=== PATIENT | male | born 1975 | race Caucasian/White ===

== ENCOUNTER 2019-04-21 14:03 | Inpatient (IN) | payer OTHER ==
[~2019-04-21] VITALS: Ht 165.1 cm; Wt 75.3 kg
[2019-04-21 14:09] VITALS: BP 136/91
[2019-04-21 17:27] VITALS: BP 136/90
[2019-04-21 18:01] VITALS: BP 150/94
[2019-04-21 18:44] VITALS: BP 141/99
[2019-04-21 21:03] VITALS: BP 128/94
--- NOTE | 2019-04-21 21:48 | NUR ---
PT CAME TO UNIT @ 1835. ADMISSION CHECKLIST COMPLETED. PT DENIES PAIN. L ANKLE ELEVATED WITH ICE PACKS. FRIENDS AT BEDSIDE, TRANSLATED DURING ADMISSION. PT AWARE OF NPO STATUS @ MIDNIGHT. READY FOR SURGERY.
[2019-04-21 22:52] LABS: ABSOLUTE NEUTROPHILS 5.4 thou/uL (1.4-8.2); BASOPHILS 0.7 % (0.0-2.0); EOSINOPHILS 0.7 % (0.0-3.0); HEMATOCRIT 47.3 % (42.0-52.0); HEMOGLOBIN 15.8 gm/dL (14.0-18.0); MCH 31.1 pg (26.0-34.0); MCHC 33.5 g/dL (28.0-37.0); MCV 92.9 fL (80.0-100.0); MONOCYTES 11.1 % (1.0-8.0); PLATELET COUNT 329 thou/uL (150-400); POLYS 57.5 % (36.0-66.0); RBC 5.09 mil/uL (4.50-6.00); RDW 12.8 % (10.5-14.5); WBC 9.4 thou/uL (4.0-11.0)
[2019-04-21 22:56] LABS: CALCIUM 8.8 mg/dL (8.5-10.1); POTASSIUM 3.7 mmol/L (3.5-5.1)
[2019-04-22 07:50] VITALS: BP 126/85
[2019-04-22 11:19] VITALS: BP 139/89
--- NOTE | 2019-04-22 11:23 | NUR ---
IN preop Dr. Ricardo carranza the phone director of product development service to interview the silvia regarding his health history and to explain the surgery to him.Silvia asked questions gave permission for the surgery and for anesthesia. His friend ABRAHAM was in the room during the above conversation.
--- NOTE | 2019-04-22 15:25 | NUR ---
Case opened to follow for dc planning. Pt is s/p orif lt ankle today. [employer] Offbearer visited with his and a friend at bedside. Compound Coating [employer] Offbearer spoke with them in Belgian. The pt is from [place] and was here in town for work. He works in construction. He broke his ankle playing a soccer game. He is aware that he will be NWB for 6 weeks. He will need to come back and see ortho in 2weeks. They are planning on driving back home tomorrow (4hours) and have been encouraged to stop every hour and walk. The pt used both a rwalker and crutches with therapy today. Info provided to the pt's friend to go to a second hand store and look for a used rwalker/crutches as the pt is self pay with no insurance coverage. His friend will look this evening to see what he can find. The pt lives in an apt with 8 steps, but is planning on staying with his brother and sister in law for a while as they do not have any steps. Pt is aware that he will likely be dc'd tomorrow. Will ask [employer] to see the pt for a alejandrina application. Nursing updated. Will f/u in the am to see if they were able to obtain a walker or crutches.
--- NOTE | 2019-04-22 16:57 | NUR ---
PT ASSESSED AT START OF SHIFT. LT LEG ELEVATED ABOVE HEART. ICE PACKS TO ANKLE. WENT TO SURGERY THIS AM AND RETURNED AT 1530 ALERT AND IN NO ACUTE DISTRESS. ASSESSED AND VS TAKEN. O2 AT 2L NC W/ 98%SAT. LUNGS CLEAR. RESP EVEN AND UNLABORED. NO C/O PAIN AT THIS TIME. EATING SOLID FOOD W/O NAUSEA. 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
[2019-04-22 20:45] VITALS: BP 122/76
--- NOTE | 2019-04-23 04:46 | NUR ---
ASSESSMENT COMPLEETD.PT C/O PAIN ON HIS L ANKLE,MANAGED WITH PO MED.FRIEND AT BEDSIDE,HELPING WITH TRANSLATION PER PT'S REQUEST.CAST ON HIS L LEG C/D/I.UP WITH I ASSIST AND WALKER,NON WT BEARING ON HIS L.ICE TO LLE NEEDED.PT LOOKING FORWARD TO BE DC'D IN THE AM.FALL PRECAUTIONS IN PLACE,CALL LIGHT WITHIN REACH.
[2019-04-23 05:47] VITALS: BP 121/78
--- NOTE | 2019-04-23 07:03 | O ---
[facility] [place] [address] OPERATIVE REPORT Name: SANDRA SANTOS Room #: 439-P ADM IN M.R.#: [id number] Admission: 04/21/19 Attend Phys: Jeffrey Gonzales MD Discharge: Date of : 73 Report #: [id number] THIS REPORT FOR: //name// CC: [facility] physician/PCP Jeffrey Gonzales DATE OF SERVICE: 04/22/2019 SERVICE: Orthopedics. FACILITY: [facility]. SURGEON: Jeffrey Gonzales MD REGISTERED NURSE HH CASE MANAGER: Mindi Parada NP. PREOPERATIVE DIAGNOSIS: Unstable left ankle fracture, bimalleolar (posterior and lateral malleoli), closed. POSTOPERATIVE DIAGNOSES: Unstable left ankle fracture, bimalleolar (posterior and lateral malleoli), closed. PROCEDURE: Open reduction and internal fixation of left ankle fracture with fixation of the fibula. COMPLICATIONS: None. DRAINS: None. SPECIMENS: None. ANESTHESIA: General. FINDINGS: 1. Synthes 6-hole one-third tubular plate with interfragmentary compression screw. 2. Negative cotton test. HISTORY AND INDICATIONS: The patient is a 43-year-old gentleman who sustained an unstable ankle fracture yesterday playing soccer. He was admitted, iced and elevated and was indicated for surgery. We had discussion through an court interpreter with the risks, benefits, alternatives and indications with both him and his friend. They gave full informed consent and he did wish to move forward with surgical treatment. Risks include but not limited to pain, bleeding, infection, injury to nerves or blood vessels, persistent pain despite surgical [facility] [address] [place] [address] OPERATIVE REPORT Name: SANDRA SANTOS Room #: 439-P ADM IN M.R.#: [id number] Admission: 04/21/19 Attend Phys: Jeffrey Gonzales MD Discharge: Date of : 73 Report #: [id number] intervention, failure of any repairs, reconstruction, progression of preexisting chondral injury, stiffness, need for further surgery as well as complications related to anesthesia such as stroke, heart attack, pulmonary complications, thromboembolic disease and . Despite these risks, he wished to proceed. PROCEDURE IN DETAIL: After left lower extremity was correctly identified in preoperative holding area as the operative extremity, the patient was taken to the operating room where general anesthesia was induced without complication. He was padded appropriately. Prophylactic antibiotics were administered at appropriate time. Tourniquet was applied to the left leg. Left lower extremity was then prepped and draped in standard sterile fashion. Timeout procedure was performed. Esmarch was used. Tourniquet was inflated to 250 mmHg. Standard lateral approach was made to the fibula. Full thickness skin flaps were developed. Vital structures were protected. Fracture was exposed and irrigated hematoma and then a provisional reduction was performed with clamps. I then placed an interfragmentary compression screw in lag technique. This held the fracture anatomically reduced. The one-third tubular plate was then used in a neutralization mode. It was fixed proximally and distally with 1 screw. We brought x-ray in to confirm appropriate position of the plate and then completed the filling of the three holes proximally and 3 holes distally with good secure fixation as the patient has good quality bone. Final x-rays were then taken including cross-table lateral and a cotton test was performed to ensure that there was no instability of the tibiotalar joint or the syndesmosis. The posterior malleolus was anatomically reduced at this point. The wound was copiously irrigated. Deep layers closed over the plate with 0 Vicryl suture. Skin was closed with 2-0 Vicryl followed by running subcuticular 3-0 Monocryl. Sterile dressing was applied followed by a well-padded short leg splint. The patient will be nonweightbearing for 6 weeks. He was awakened from anesthesia and taken to recovery room in stable condition. No complications. All counts were correct. <ELECTRONICALLY SIGNED> By: Jeffrey Gonzales MD 04/23/19 [id number] Jeffrey Gonzales MD /nt
[2019-04-23 07:56] VITALS: BP 139/91
[2019-04-23 14:50] VITALS: BP 139/91
[2019-04-23 16:55] VITALS: BP 139/91
--- NOTE | 2019-04-23 17:20 | NUR ---
DC ORDERS RECEIVED. IV REMOVED FROM R FA. DC INSTRUCTIONS, SCRIPT AND F/U APPOINTMENT REVIEWED WITH PT AND HIS GEORGIAN SPEAKING FRIEND. HIS FRIEND DID PICK PT UP A WALKER THIS AM. VOLUNTEER ESCORTED PT TO MAIN ENTRANCE.
== END 2019-04-23 18:20 | disposition home or self-care (01) | DRG 494 ==
LOC: ER 14:03 → EDBD 17:02 → EROBS 17:02 → 4S 17:02 → ENTRNSPT 04-23 17:11 → 4S 04-23 18:20
PROVIDERS: ADMIT Orthopaedic Surgery Sports Medicine
DX: S82.832A Other fracture of upper and lower end of left fibula, initial encounter for closed fracture (principal); S82.842A Displaced bimalleolar fracture of left lower leg, initial encounter for closed fracture; W01.0XXA Fall on same level from slipping, tripping and stumbling without subsequent striking against object, initial encounter; Y93.66 Activity, soccer; Y92.89 Other specified places as the place of occurrence of the external cause; Y99.8 Other external cause status; Z23 Encounter for immunization
CPT/HCPCS: 10195; 50010; 50101; 50343; 50386; 51131; 51741; 56524; 56525; 56527; 56528; 56667; 57091; 57179; 62110; 62900; 70005